=== PATIENT | male | born 1960 | race Two or more races ===

== ENCOUNTER → 2023-04-12 | Outpatient (CLI) | payer OTHER ==
[~2023-04-12] MED LIST: DOXAZOSIN MESYLA1 MG; IRBESARTAN-HCT1 EAC1 PO; METFORMIN HCL500 M4; NORVASC5 MG PO; PANTOPRAZOLE SO40 MG
[2023-04-12 10:20] LABS: HEMATOCRIT 44.4 % (39.0-48.0); HEMOGLOBIN 15.4 g/dL (13-16.00); MEAN CELL VOLUME 84.4 fL (80.0-100.00); MEAN CORPUSCULAR HEMOGLOBIN 29.4 pg (27.00-32.0); MEAN CORPUSCULAR HGB CONC 34.8 g/dl (32.0-36.0); PLATELET COUNT 224 K/uL (150-450); RED BLOOD COUNT 5.26 M/uL (4.00-6.00)
[2023-04-12 10:24] LABS: URINE APPEARANCE Clear; URINE BILIRRUBIN Negative (NEGATIVE); URINE BLOOD Negative; URINE COLOR Yellow; URINE LEUKOCYTE Negative; URINE NITRATE Negative; URINE PROTEIN Negative (NEGATIVE); URINE UROBILINOGEN 0.2 E.U./dl
[2023-04-12 10:29] LABS: URINE BACTERIA 12.5 uL (0.0-1933)
[2023-04-12 11:02] LABS: INR 0.98; PARTIAL THROMBOPLASTIN TIME 24.6 SECONDS (22.0-34.0); PROTHROMBIN TIME 10.3 SECONDS (9.0-11.5)
[2023-04-12 11:07] LABS: ALBUMIN 3.9 gm/dL (3.4-5.0); BILIRUBIN TOTAL 1.54 mg/dL (0.3-1.2); CALCIUM 10.6 mg/dL (8.5-10.1); CREATININE SERUM 0.84 mg/dL (0.70-1.30); GFR 93.21; GLOBULINA 3.3 G/DL (2.4-3.5); POTASSIUM 4.1 mEq/L (3.5-5.1); TOTAL PROTEIN 7.2 gm/dL (6.4-8.2)
[2023-04-12 11:11] LABS: URINE GLUCOSE >=1000 MG/DL (NEGATIVE); URINE RBC 0.1 uL (0.0-20.8); URINE WBC 1.6 uL (0.0-23.2)
== END | disposition home or self-care (01) ==
LOC: LAB 06:00 → SURH 04-25 08:15 → EDSTATUS 04-25 08:15 → SURH 04-25 12:00
PROVIDERS: ATTEND Surgery
DX: K63.89 Other specified diseases of intestine (principal); D12.2 Benign neoplasm of ascending colon

== ENCOUNTER 2023-05-26 10:52 | Inpatient (IN) | payer OTHER ==
[~2023-05-26] VITALS: Ht 172.7 cm; Wt 90.7 kg
[2023-05-26] MEDS ORDERED: IRBESARTAN-HCT1 EAC1 PO (11:56)
[2023-05-26] MEDS ORDERED: NORVASC5 MG PO (11:57)
[2023-05-26 12:06] LABS: HEMATOCRIT 44.6 % (39.0-48.0); HEMOGLOBIN 15.3 g/dL (13-16.00); MEAN CELL VOLUME 86.7 fL (80.0-100.00); MEAN CORPUSCULAR HEMOGLOBIN 29.7 pg (27.00-32.0); MEAN CORPUSCULAR HGB CONC 34.2 g/dl (32.0-36.0); PLATELET COUNT 261 K/uL (150-450); RED BLOOD COUNT 5.14 M/uL (4.00-6.00); RED CELL DISTRIBUTION WIDTH 13.3 % (11.5-14.5)
[2023-05-26 12:08] LABS: PH,URINE 5.5 (5.0-8.0); URINE APPEARANCE Clear; URINE BILIRRUBIN Negative (NEGATIVE); URINE BLOOD Negative; URINE COLOR Yellow; URINE GLUCOSE Negative (NEGATIVE); URINE LEUKOCYTE Negative; URINE NITRATE Negative; URINE PROTEIN Negative (NEGATIVE); URINE UROBILINOGEN 0.2 E.U./dl
[2023-05-26 12:09] LABS: URINE BACTERIA 50.3 uL (0.0-1933); URINE EPITHELIAL CELLS 11.2 uL (0.0-38.8); URINE WBC 7.5 uL (0.0-23.2)
[2023-05-26 12:21] LABS: PARTIAL THROMBOPLASTIN TIME 25.9 SECONDS (22.0-34.0); PROTHROMBIN TIME 10.5 SECONDS (9.0-11.5)
[2023-05-26 12:32] LABS: ALBUMIN 4.3 gm/dL (3.4-5.0); BILIRUBIN TOTAL 1.63 mg/dL (0.3-1.2); CALCIUM 11.2 mg/dL (8.5-10.1); CREATININE SERUM 0.94 mg/dL (0.70-1.30); GFR 81.86; GLOBULINA 3.1 G/DL (2.4-3.5); POTASSIUM 4.36 mEq/L (3.5-5.1); TOTAL PROTEIN 7.4 gm/dL (6.4-8.2)
[2023-06-06] MEDS ORDERED: PANTOPRAZOLE SO40 MG (07:46)
[2023-06-06] MEDS ORDERED: METFORMIN HCL500 M4 (07:46)
[2023-06-06] MEDS ORDERED: DOXAZOSIN MESYLA1 MG (07:46)
== END 2023-06-09 11:59 | disposition home or self-care (01) | DRG 331 ==
LOC: O/R 06-06 05:30 → SURG 06-06 05:30 → SURH 06-06 07:00 → CIR.AMB 06-06 10:48 → EDSTATUS 06-06 10:48 → SURH 06-06 10:49 → SURG 06-06 10:57
PROVIDERS: ADMIT Surgery; ATTEND Surgery
PROC: 0DTF4ZZ Resection of Right Large Intestine, Percutaneous Endoscopic Approach (ICD-10-PCS; principal; 2023-06-06 07:00)
DX: D12.0 Benign neoplasm of cecum (principal); K63.5 Polyp of colon; R59.0 Localized enlarged lymph nodes; K63.89 Other specified diseases of intestine